=== PATIENT | male | born 1995 | race Caucasian/White ===

== ENCOUNTER 2017-05-11 11:18 | Inpatient (IN) | payer BC, OTHER ==
[~2017-05-11] VITALS: Ht 182.9 cm; Wt 68.0 kg
[2017-05-12 19:45] VITALS: BP 135/88
[2017-05-12] MEDS ORDERED: ONDANSETRON 4 MG/2 ML VIAL IM PRN (19:45)
[2017-05-12] MEDS ORDERED: ONDANSETRON ODT 4 MG TAB.RAPDIS SL PRN (19:45)
[2017-05-12] MEDS ORDERED: MAG HYDROX/AL HYDROX/SIMETH 30 ML LIQUID UDC PO PRN (19:45)
[2017-05-12] MEDS ORDERED: ACETAMINOPHEN 325 MG TABLET PO PRN (19:45)
[2017-05-12] MEDS ORDERED: LOPERAMIDE HCL 2 MG CAPSULE PO PRN ×2 (19:45)
[2017-05-12] MEDS ORDERED: LORAZEPAM 2 MG/1 ML VIAL IM PRN (19:45)
[2017-05-12] MEDS ORDERED: MIRALAX 17 GM POWD.PACK PO PRN (19:45)
[2017-05-12] MEDS ORDERED: LORAZEPAM 1 MG TABLET PO PRN ×2 (19:45)
[2017-05-12] MEDS ORDERED: DICYCLOMINE HCL 20 MG TABLET PO PRN (19:45)
[2017-05-12] MEDS ORDERED: CLONIDINE HCL 0.1 MG TABLET PO PRN (19:45)
[2017-05-12] MEDS ORDERED: IBUPROFEN 600 MG TABLET PO PRN (19:45)
[2017-05-12] MEDS ORDERED: diphenhydrAMINE 50 MG CAPSULE PO PRN (19:45)
[2017-05-12] MEDS ORDERED: MAGNESIUM HYDROXIDE 30 ML LIQUID UDC PO PRN (19:45)
--- NOTE | 2017-05-12 19:45 | NUR ---
PRE-ADMISSION VS BP-135/88 P-85 T-97.5 R-16 SpO2 AT 99% IN RA. PATIENT ALERT AND ORIENTED X 4. AMBULATORY, PATIENT NOTED WITH WALKER MATT , HE STATES HE HAD FRACTURE ON RIGHT ANKLE 2 WEEKS AGO , GAIT IS STEADY. SPEECH IS CLEAR AND ABLE TO ANSWER QUESTIONS APPROPRIATELY. NO ALLERGY TO MEDICATION OR FOOD. NO SEIZURE HISTORY. WILL CONTINUE ADMISSION ON 3RD FLOOR.
--- NOTE | 2017-05-12 19:59 | NUR ---
ADMISSION NOTE PATIENT IS A 22 YEAR OLD MALE WHO PRESENTS TO [facility] FOR SUPERVISED WITHDRAWAL FROM ETOH/COCAINE DEPENDENCE. HEIGHT IS 6'0 AND WEIGHT IS 150 LBS. LUNGS CLEAR , ABDOMEN SOFT AND NON-DISTENDED. BOWEL SOUNDS ACTIVE. LAST BOWEL MOVEMENT TODAY. BODY CHECK DONE, SKIN INTACT. OLD SCAR NOTED ON LEFT ANKLE. PATIENT REPORTS PMH OF LEFT ANKLE SURGERY DUE TO FRACTURE 2 YEARS AGO AND HE HAD FRACTURE ON RIGHT ANKLE 2 WEEKS AGO AND HE WEARS WALKER BOOTS. PATIENT LIVES WITH HIS PARENTS . 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 PATIENT REQUEST TO BE FULL CODE AND ON REGULAR DIET. PATIENT'S DRUG OF CHOICE ARE: ALCOHOL (BEER AND VODKA)-STARTED DRINKING AT AGE 14. PATIENT DRINKS 12-18 BEERS AND 12 OUNCES OF VODKA DAILY FOR 4 MONTHS. LAST DRINK WAS 3-4 SHOTS OF VODKA PRIOR TO ADMISSION COCAINE (SNORT)-STARTED USING AT AGE 19. PATIENT SNORTS 1 GRAM DAILY FOR 4 MONTHS. LAST USE WAS 1 GRAM ON 05/12/16 MIDNIGHT. TREATMENT HISTORY [facility] DOES NOT HAVE PCP. PATIENT STATES HE'S ANXIOUS, NO N/V. DENIES ANY PAIN AT THIS TIME. CIWA 4. DENIES SI/HI. PATIENT SMOKES 2 CIGARETTES OCCASIONALLY. HE REFUSED FLU AND PNEUMONIA VACCINE, EXPLAINED RISKS/BENEFITS BUT STILL REFUSED. NO HOME MEDICATION. NO UA PROVIDED AT THIS TIME. DR. GARCIA SAW PATIENT AT INTAKE. PATIENT WAS PLACED ON 5 DAYS ATIVAN TAPER. PATIENT ON FALL/SEIZURE PRECAUTION. PATIENT ORIENTED TO SURROUNDINGS AND HOW TO USE CALL LIGHT. EXPLAINED Q4 HOURS VS , UNIT AND SMOKING POLICIES. CALL LIGHT IN REACH. WILL CONTINUE TO MONITOR.
--- NOTE | 2017-05-12 20:00 | NUR ---
START OF SHIFT NOTE RECEIVED REPORT FROM DAY SHIFT NURSE. PATIENT CONTINUE ON ATIVAN TAPER FOR ETOH DEPENDENCE. PATIENT REPORTS PMH OF SURGERY ON LEFT ANKLE AND FRACTURE ON RIGHT ANKLE (WEARS WALKER BOOT). NO SEIZURE HISTORY. PPD WAS GIVEN ON LEFT FOREARM. IN THE ROOM MOST OF THE DAY, SLEPT MOST OF THE DAY SHIFT. ATIVAN AT 1700 WAS HELD DUE TO PATIENT SLEEPING. LAST CIWA 0. RECEIVED PATIENT ALERT AND ORIENTED X 4. RESPIRATION EVEN AND UNLABORED. PATIENT ANXIOUS, NOTED WITH FINE TREMORS, NO N/V , DENIES ANY PAIN AT THIS TIME. ON FALL/SEIZURE PRECAUTION. SAFETY MEASURES IN PLACE. CALL LIGHT IN REACH. WILL CONTINUE TO MONITOR. Addendum: 05/14/17 at 0221 by SAMANTHA BHAKTA LVN ERROR CHARTING
[2017-05-12] MEDS ORDERED: THIAMINE HCL 200 MG/2 ML VIAL IM ONE (21:00)
[2017-05-12] MEDS ORDERED: LORAZEPAM 1 MG TABLET PO SCH (22:00)
--- NOTE | 2017-05-12 22:00 | NUR ---
ATIVAN HELD ATIVAN HELD, PATIENT UNABLE TO PROVIDE UA YET
[2017-05-12 23:21] LABS: BASOPHILS # (AUTO) 0.1 K/uL (0.0-8.0); BASOPHILS % (AUTO) 0.6 % (0.0-2.0); EOSINOPHILS # (AUTO) 0.4 K/uL (0.0-0.7); EOSINOPHILS % (AUTO) 4.4 % (0.0-7.0); HEMATOCRIT 44.8 % (36.7-47.1); HEMOGLOBIN 15.6 g/dL (12.5-16.3); LYMPHOCYTES # (AUTO) 2.3 K/uL (20.0-40.0); LYMPHOCYTES % (AUTO) 26.2 % (20.5-51.5); MEAN CORPUSCULAR HGB CONC 35 g/dL (32.5-36.3); MEAN CORPUSCULAR VOLUME 91.7 fL (73.0-96.2); MONOCYTES # (AUTO) 0.8 K/uL (2.0-10.0); MONOCYTES % (AUTO) 8.7 % (0.0-11.0); NEUTROPHILS # (AUTO) 5.4 K/uL (1.8-8.9); NEUTROPHILS % (AUTO) 60.1 % (38.5-71.5); PLATELET COUNT (AUTO) 289 K/uL (152-348); RED BLOOD CELL COUNT(AUTO) 4.89 MIL/uL (4.06-5.63); WHITE BLOOD COUNT (AUTO) 8.9 K/uL (3.6-10.2)
[2017-05-12 23:36] LABS: ALANINE AMINOTRANSFERASE 55 U/L (16-63); ALKALINE PHOSPHATASE 90 U/L (50-136); AMYLASE 69 U/L (25-115); ASPARTATE AMINOTRANSFERASE 33 U/L (15-37); BILIRUBIN,TOTAL 0.4 mg/dL (0.2-1.0); CARBON DIOXIDE 34 mmol/L (21-32); CHLORIDE 102 mmol/L (98-107); CREATININE 1.1 mg/dL (0.6-1.3); GLUCOSE 98 mg/dL (74-106); POTASSIUM 4.3 mmol/L (3.5-5.1); TOTAL PROTEIN, SERUM 7.6 g/dL (6.4-8.2); UREA NITROGEN, BLOOD 14 mg/dL (7-18)
[2017-05-13] VITALS: BP 111/63
--- NOTE | 2017-05-13 | NUR ---
CIWA DEFERRED PATIENT SLEEPING. CIWA DEFERRED. RESPIRATION EVEN AND UNLABORED. SAFETY MEASURES IN PLACE. CALL LIGHT IN REACH. WILL CONTINUE TO MONITOR
[2017-05-13 00:26] LABS: ETHANOL < 3 MG/DL (0-0)
--- NOTE | 2017-05-13 03:59 | NUR ---
PRATEEK [facility]AW[facility]IST[facility] PATIENT C/O ANXIETY AND UNABLE TO GO BACK TO SLEEP. WILL MONITOR FOR EFFECTIVENESS Addendum: 05/14/17 at 0546 by SAMANTHA BHAKTA LVN ERROR: CHARTING (TIME)
[2017-05-13 04:00] VITALS: BP_SYST 103; BP_SYST 107; BP_DIAS 50; BP_DIAS 59
--- NOTE | 2017-05-13 04:00 | NUR ---
CIWA DEFERRED PATIENT SLEEPING. CIWA DEFERRED. RESPIRATION EVEN AND UNLABORED. SAFETY MEASURES IN PLACE. CALL LIGHT IN REACH. WILL CONTINUE TO MONITOR
--- NOTE | 2017-05-13 07:27 | NUR ---
END OF SHIFT NOTE PATIENT SLEPT 10 HOURS. FLUID INTAKE 855 ML. VOIDED X 3. NO BM. PATIENT IS A 22 YEAR OLD MALE NEWLY ADMITTED FOR ETOH DEPENDENCE. PATIENT WAS PLACED ON 5 DAY ATIVAN TAPER. PATIENT REFUSED THIAMINE IM INJECTION, EXPLAINED RISKS/BENEFITS BUT STILL REFUSED. PATIENT HAVE NOT YET PROVIDED UA, ATIVAN ONE TIME AT 2200 HELD. PATIENT DID NOT REQUIRE ANY PRN MEDICATION. LAST CIWA 4. ON FALL/SEIZURE PRECAUTION. SAFETY MEASURES IN PLACE. CALL LIGHT IN REACH. WILL CONTINUE TO MONITOR.
--- NOTE | 2017-05-13 07:30 | NUR ---
Start of shift report: A/o x4 lying in bed with with right foot brace on Deies of any distress. no s/s of w/d sx. On 5 day ativan taper. Skin warm and dry color is good. resp even and unlab. Safety precautions observed. call light within reach.
[2017-05-13 08:30] VITALS: BP 118/87
[2017-05-13] MEDS ORDERED: TUBERCULIN,PURIF.PROT.DERIV. 5 TU/0.1 ML TEST ID ONE (09:00)
[2017-05-13] MEDS: LORAZEPAM 1 MG TABLET PO SCH ×4 (09:28→20:55)
[2017-05-13] MEDS: MULTIVITAMINS,THERAPEUTIC TABLET PO SCH (09:28)
[2017-05-13] MEDS: THIAMINE HCL 100 MG TABLET PO SCH (09:28)
[2017-05-13] MEDS: FOLIC ACID 1 MG TABLET PO SCH (09:28)
[2017-05-13 12:17] VITALS: BP 105/72
[2017-05-13 13:48] LABS: *AMPHETAMINE, URINE NEGATIVE (NEGATIVE); *BARBITURATE, URINE NEGATIVE (NEGATIVE); *CANNABINOID, URINE POSITIVE (NEGATIVE); *COCCAINE, URINE POSITIVE (NEGATIVE); *OPIATE, URINE NEGATIVE (NEGATIVE); *PHENCYCLIDINE SCREEN,URINE NEGATIVE (NEGATIVE)
[2017-05-13 17:03] VITALS: BP 91/55
[2017-05-13 20:00] VITALS: BP 121/82
--- NOTE | 2017-05-13 20:00 | NUR ---
START OF SHIFT NOTE RECEIVED REPORT FROM DAY SHIFT NURSE. PATIENT CONTINUE ON ATIVAN TAPER FOR ETOH DEPENDENCE. PATIENT REPORTS PMH OF SURGERY ON LEFT ANKLE AND FRACTURE ON RIGHT ANKLE (WEARS WALKER BOOT). NO SEIZURE HISTORY. PPD WAS GIVEN ON LEFT FOREARM. IN THE ROOM MOST OF THE DAY, SLEPT MOST OF THE DAY SHIFT. ATIVAN AT 1700 WAS HELD DUE TO PATIENT SLEEPING. LAST CIWA 0. RECEIVED PATIENT ALERT AND ORIENTED X 4. RESPIRATION EVEN AND UNLABORED. PATIENT ANXIOUS, NOTED WITH FINE TREMORS, NO N/V , DENIES ANY PAIN AT THIS TIME. ON FALL/SEIZURE PRECAUTION. SAFETY MEASURES IN PLACE. CALL LIGHT IN REACH. WILL CONTINUE TO MONITOR.
[2017-05-14] VITALS: BP 109/70
--- NOTE | 2017-05-14 | NUR ---
CIWA DEFERRED PATIENT SLEEPING. CIWA DEFERRED. RESPIRATION EVEN AND UNLABORED. SAFETY MEASURES IN PLACE. CALL LIGHT IN REACH. WILL CONTINUE TO MONITOR.
--- NOTE | 2017-05-14 03:59 | NUR ---
[facility]XIETY AND UNABLE TO GO BACK TO SLEEP. WILL MONITOR FOR EFFECTIVENESS Addendum: 05/14/17 at 0548 by SAMANTHA BHAKTA LVN ERROR : CHARTING IS FOR ANOTHER PATIENT
[2017-05-14 04:00] VITALS: BP 117/69
--- NOTE | 2017-05-14 04:00 | NUR ---
CIWA DEFERRED PATIENT SLEEPING. CIWA DEFERRED. RESPIRATION EVEN AND UNLABORED. SAFETY MEASURES IN PLACE. CALL LIGHT IN REACH. WILL CONTINUE TO MONITOR.
--- NOTE | 2017-05-14 04:59 | NUR ---
PRATEEK GARRETT RE-ASSESSMENT PATIENT STATES LESS ANXIOUS BUT STILL UNABLE TO SLEEP , WILL TRY TO SLEEP Addendum: 05/14/17 at 0654 by SAMANTHA BHAKTA LVN ERROR : CHARTING IS FOR ANOTHER PATIENT
--- NOTE | 2017-05-14 07:14 | NUR ---
END OF SHIFT NOTE PATIENT SLEPT 9 HOURS. FLUID INTAKE 1,096 ML. VOIDED X 3. BM X 1. PATIENT CONTINUE ON ATIVAN TAPER FOR ETOH DEPENDENCE, TOLERATED WELL AND NO ADVERSE REACTION. PATIENT COMPLIANT WITH MEDICATION AND TREATMENT PLAN. PATIENT ANXIOUS, NOTED WITH FINE TREMORS, NO N/V , DENIES ANY PAIN BEGINNING OF SHIFT. MEDICATION AND TAPER GIVEN ORDERED. PATIENT DID NOT REQUIRE ANY PRN MEDICATION. ON FALL/SEIZURE PRECAUTION. SAFETY MEASURES IN PLACE. CALL LIGHT IN REACH. WILL CONTINUE TO MONITOR. LAST CIWA 5.
--- NOTE | 2017-05-14 07:45 | NUR ---
Start of Shift Report: Received report from awake overnight monitor. Ciwa 5 Compliant with am meds. Lying in bed watching tv. fall/sz precautions observed. continue to mointor for safety. Call light within reach.
[2017-05-14 08:06] LABS: HEPATITIS B SURFACE AG Negative (Negative)
[2017-05-14] MEDS: THIAMINE HCL 100 MG TABLET PO SCH (08:54)
[2017-05-14] MEDS: FOLIC ACID 1 MG TABLET PO SCH (08:54)
[2017-05-14] MEDS: LORAZEPAM 1 MG TABLET PO SCH ×3 (08:54→20:35)
[2017-05-14] MEDS: MULTIVITAMINS,THERAPEUTIC TABLET PO SCH (08:54)
[2017-05-14 09:25] VITALS: BP 113/72
[2017-05-14 12:31] VITALS: BP 117/76
[2017-05-14 16:51] VITALS: BP 114/71
--- NOTE | 2017-05-14 17:47 | NUR ---
End of Shift report: A/o x4 lying in bed watching Tv Ciwa 1 c/o slight anxiety no prn through given during shift. Client states " I will start attending groups tomorrow. Continue to mointor for safety. remains stable.
--- NOTE | 2017-05-14 19:01 | NUR ---
Therapist prompted client about group times. Client stated he would attend all groups tomorrow.
--- NOTE | 2017-05-14 19:15 | NUR ---
START OF SHIFT Received 22 year old male patient admitted on 05/12/17 for ETOH and Cocaine dependency. Pt is full code with NKA. He reports a PMhx of surgery on left ankle -2 years ago, and fracture on right ankle (wears walker boot). He reports drinking beer or vodka. 12-18 beers and 12 oz of vodka daily for 4 months. Last dose was 3-4 shots of vodka on 05/12/17. He also reports snorting cocaine 1 gram daily for 4 months. Last dose was 1 gram on 05/12/17. He is on a 5 day Ativan taper and tolerating well. Per endorsement, pt did not receive or request PRN medications. Pt is alert and oriented x4, breathing is even and unlabored. Safety measures in place. Will continue to monitor.
[2017-05-14 20:00] VITALS: BP 121/67
[2017-05-14] MEDS: GABAPENTIN 300 MG CAPSULE PO SCH (20:35)
[2017-05-15] VITALS: BP 110/72
--- NOTE | 2017-05-15 04:00 | NUR ---
VITALS REFUSED, CIWA DEFERRED 0400 vitals refused. CIWA deferred d/t pt lying in bed with eyes closed noted to be asleep. Breathing even and unlabored. Safety measures in place. Will continue to monitor.
--- NOTE | 2017-05-15 07:09 | NUR ---
END OF SHIFT Pt is a 22 year old male patient admitted on 05/12/17 for ETOH and Cocaine dependency. Pt is full code with NKA. He reports a PMhx of surgery on left ankle -2 years ago, and fracture on right ankle (wears walker boot). He continues on a 5 day Ativan taper and tolerating well. He did not receive or request PRN medications. He slept a total of 10 hrs, Intake: 900mL, Void: x2, BM:, CIWA:2. Pt remains alert and oriented x4, breathing is even and unlabored. Safety measures in place. Endorsed to AM shift.
--- NOTE | 2017-05-15 07:21 | NUR ---
BEGINNING OF SHIFT Patient endorsement report received from overage shortage and damage clerk nurse, all pertinent information discussed. Patient is a 22 year old male admitted on 05/12/2017. With admitting Dx: etoh dependence. Patient continues on a 5 day Ativan taper as ordered, and is currently scheduled to begin day 3 of taper. Patient received no PRN medications during overage shortage and damage clerk. Patient slept for 10 hours with last ciwa score of: 2. Patient skin is intact. Fall and seizure precautions observed at all times. Patient received in bed with eyes closed and respirations even and unlabored. Will educate patient regarding plan of care for the day and medication regimen. will monitor closely.
[2017-05-15 08:20] VITALS: BP 110/80
[2017-05-15] MEDS: FOLIC ACID 1 MG TABLET PO SCH (08:42)
[2017-05-15] MEDS: GABAPENTIN 300 MG CAPSULE PO SCH ×2 (08:42→22:18)
[2017-05-15] MEDS: MULTIVITAMINS,THERAPEUTIC TABLET PO SCH (08:43)
[2017-05-15] MEDS: LORAZEPAM 1 MG TABLET PO SCH ×3 (08:43→22:18)
[2017-05-15] MEDS: THIAMINE HCL 100 MG TABLET PO SCH (08:43)
[2017-05-15 12:40] VITALS: BP 127/79
[2017-05-15 14:10] VITALS: BP 127/79
[2017-05-15 17:02] VITALS: BP 116/69
--- NOTE | 2017-05-15 19:03 | NUR ---
END OF SHIFT Patient alert and oriented x4, vital signs WNL during shift. Patient compliant with therapeutic plan of care. Admitting Dx: etoh dependence and continues on 5 day Ativan taper as ordered. Patient received no PRN medications, all due medications were administered as ordered, well tolerated. Patient presented with: fine tremors, anxiety, barely sweating and, mild agitation with ciwa score of: 6. 0900 CIWA:6; 1300 CIWA: 6; 1700 CIWA: 6. Encouraged patient to increase PO fluid intake as tolerated, to facilitate detox. Encouraged patient to attend group therapies/sessions to learn new coping skills to prevent relapse. patient noted attending and participating, denies SI/HI. Safety measures in place. call light kept with in reach. all needs met and rendered, call light kept with in reach. Safety measures in place. Patient endorsed to overnight stocker nurse, all pertinent information discussed.
--- NOTE | 2017-05-15 19:15 | NUR ---
START OF SHIFT Pt is a 22 year old male patient admitted on 05/12/17 for ETOH and Cocaine dependency. Pt is full code with NKA. He reports a PMhx of surgery on left ankle -2 years ago, and fracture on right ankle (wears walker boot). He reports drinking beer or vodka. 12-18 beers and 12 oz of vodka daily for 4 months. Last dose was 3-4 shots of vodka on 05/12/17. He also reports snorting cocaine 1 gram daily for 4 months. Last dose was 1 gram on 05/12/17. He is receiving a 5 day Ativan taper and tolerating well. Per endorsement, he did not receive or request PRN medications. Pt is alert and oriented x4, breathing is even and unlabored. Safety measures in place. Will continue to monitor.
[2017-05-15 20:00] VITALS: BP 126/80
--- NOTE | 2017-05-16 | NUR ---
VITALS REFUSED, CIWA DEFERRED 0000 vitals refused. CIWA deferred d/t pt lying in bed with eyes closed noted to be asleep. Breathing even and unlabored. Safety measures in place. Will continue to monitor.
--- NOTE | 2017-05-16 07:18 | NUR ---
END OF SHIFT Pt is a 22 year old male patient admitted on 05/12/17 for ETOH and Cocaine dependency. Pt is full code with NKA. He continues on a 5 day Ativan taper and tolerating well. He did not receive or request PRN medications. He slept a total of 7 hrs, Intake: 1700mL, Void: x1, BM:x1, CIWA:4. Pt remains alert and oriented x4, breathing is even and unlabored. Safety measures in place. Endorsed to AM shift.
--- NOTE | 2017-05-16 07:43 | NUR ---
BEGINNING OF SHIFT Patient endorsement report received from scene shifter nurse, all pertinent information discussed. Patient is a 22 year old male admitted on 05/12/2017. With admitting Dx: etoh dependence. Patient continues on a 5 day Ativan taper as ordered, and is currently scheduled to begin day 4 of taper. Patient received no PRN medications during scene shifter. Patient slept for 6 hours with last ciwa score of: 4. Patient skin is intact. Fall and seizure precautions observed at all times. Patient received in bed with eyes closed and respirations even and unlabored. Will educate patient regarding plan of care for the day and medication regimen. will monitor closely.
[2017-05-16 08:30] VITALS: BP 114/76
[2017-05-16] MEDS: GABAPENTIN 300 MG CAPSULE PO SCH ×2 (08:44→20:16)
[2017-05-16] MEDS: MULTIVITAMINS,THERAPEUTIC TABLET PO SCH (08:44)
[2017-05-16] MEDS: THIAMINE HCL 100 MG TABLET PO SCH (08:44)
[2017-05-16] MEDS: FOLIC ACID 1 MG TABLET PO SCH (08:44)
[2017-05-16] MEDS: LORAZEPAM 1 MG TABLET PO SCH ×2 (08:44→20:16)
[2017-05-16 13:34] VITALS: BP 112/78
[2017-05-16 17:49] VITALS: BP 124/80
--- NOTE | 2017-05-16 19:07 | NUR ---
END OF SHIFT Patient alert and oriented x4, vital signs WNL during shift. Patient compliant with therapeutic plan of care. Admitting Dx: etoh dependence and continues on 5 day Ativan taper as ordered. Patient received no PRN medications, all due medications were administered as ordered, well tolerated. Patient presented with: fine tremors, anxiety, barely sweating and, mild agitation with ciwa score of: 5. 0900 CIWA:5; 1300 CIWA: 5; 1700 CIWA: 5. Encouraged patient to increase PO fluid intake as tolerated, to facilitate detox. Encouraged patient to attend group therapies/sessions to learn new coping skills to prevent relapse. patient noted attending and participating, denies SI/HI. Safety measures in place. call light kept with in reach. all needs met and rendered, call light kept with in reach. Safety measures in place. Patient endorsed to night shift manager nurse, all pertinent information discussed.
--- NOTE | 2017-05-16 19:30 | NUR ---
START OF SHIFT Pt is a 22 y/o male admitted on 05/12/17 for ETOH and cocaine dependence. Pt is full code, NKA, regular diet and on fall/seizure precautions. Denies hx of seizures. Pt reports PMH of left ankle surgery 2 years ago and right ankle fracture. Pt is on a 5 day Ativan taper that started on 05/13/17, tolerating well. Last CIWA 3 and no PRNs administered during day shift. Upon assessment pt laying in bed watching TV and presents with anxiety, fatigue, intermittent sweats, flushed skin, mild restlessness, dysphoria and anhedonia. Denies N/V/D. Denies chest pain or SOB. Respirations even and unlabored. Medications due. Safety measures in place.
[2017-05-16 20:00] VITALS: BP 116/75
--- NOTE | 2017-05-17 | NUR ---
CIWA DEFERRED AND VITALS REFUSED Pt laying in bed with eyes closed, CIWA deferred, to be assessed when pt is awake per orders. Vitals refused. Respirations 16, even and unlabored. Safety measures in place. Call light within reach. Will continue to monitor.
--- NOTE | 2017-05-17 07:11 | NUR ---
END OF SHIFT Pt is a 22 y/o male admitted on 05/12/17 for ETOH and cocaine dependence. Pt is full code, NKA, regular diet and on fall/seizure precautions. Denies hx of seizures. Pt reports PMH of left ankle surgery 2 years ago and right ankle fracture. Pt is on a 5 day Ativan taper that started on 05/13/17, tolerating well. Pt presented with anxiety, fatigue, intermittent sweats, flushed skin, mild restlessness, dysphoria and anhedonia. Scheduled medications administered, effective in S/S of withdrawal as verbalized by pt. No PRNS administered. VS WNL. Last CIWA 3 at 1999. Pt slept 8 hours. Intake 1151 ml, void x 2, stool x 0. Safety measures in place. Call light within reach. Pts needs have been met. Endorsed to day shift nurse.
--- NOTE | 2017-05-17 07:34 | NUR ---
BEGINNING OF SHIFT Patient endorsement report received from overnight caregiver nurse, all pertinent information discussed. Patient is a 22 year old male admitted on 05/12/2017. With admitting Dx: etoh dependence. Patient continues on a 5 day Ativan taper as ordered, and is currently scheduled to begin day 4 of taper. Patient received no PRN medications during overnight caregiver. Patient slept for 8 hours with last ciwa score of: 3. Patient skin is intact. Fall and seizure precautions observed at all times. Patient received in bed with eyes closed and respirations even and unlabored. Will educate patient regarding plan of care for the day and medication regimen. will monitor closely.
[2017-05-17 08:29] VITALS: BP 112/79
[2017-05-17] MEDS ORDERED: LORAZEPAM 1 MG TABLET PO SCH (09:00)
[2017-05-17] MEDS: FOLIC ACID 1 MG TABLET PO SCH (09:08)
[2017-05-17] MEDS: GABAPENTIN 300 MG CAPSULE PO SCH ×2 (09:08→20:32)
[2017-05-17] MEDS: THIAMINE HCL 100 MG TABLET PO SCH (09:08)
[2017-05-17] MEDS: MULTIVITAMINS,THERAPEUTIC TABLET PO SCH (09:08)
[2017-05-17 12:45] VITALS: BP 113/82
[2017-05-17] MEDS ORDERED: GABA-534 PO (14:23)
[2017-05-17 16:50] VITALS: BP 113/69
--- NOTE | 2017-05-17 19:09 | NUR ---
END OF SHIFT Patient alert and oriented x4, vital signs WNL during shift. Patient compliant with therapeutic plan of care. Admitting Dx: etoh dependence and completed 5 day Ativan taper as ordered, patient is scheduled to be discharged tomorrow. Patient received no PRN medications, all due medications were administered as ordered, well tolerated. Patient presented with: mild anxiety. 0900 CIWA:1; 1300 CIWA:1; 1700 CIWA:1. Encouraged patient to increase PO fluid intake as tolerated, to facilitate detox. Encouraged patient to attend group therapies/sessions to learn new coping skills to prevent relapse. patient noted attending and participating, denies SI/HI. Safety measures in place. call light kept with in reach. all needs met and rendered, call light kept with in reach. Safety measures in place. Patient endorsed to weight shifter nurse, all pertinent information discussed.
--- NOTE | 2017-05-17 19:30 | NUR ---
START OF SHIFT Pt is a 22 y/o male admitted for ETOH dependency.Pt is A/A/O X 4.Pt is compliant with therapeutic plan of care.Pt has completed 5 day Ativan taper as ordered, patient is scheduled to be discharged tomorrow.Last CIWA=1. Encouraged pt to increase PO fluid intake as tolerated.Pt is on full code,regular diet and NKA.Skin is intact,warm and dry to touch. Safety measures in place. call light kept with in reach. all needs met and rendered.Will continue to monitor.
[2017-05-17 20:00] VITALS: BP 115/73
--- NOTE | 2017-05-18 | NUR ---
VITALS REFUSED; CIWA DEFERRED. Pt resting in bed with eyes closed,in deep sleep. CIWA deferred, d/t sleep. Vitals refused. Respirations are even and unlabored. Safety measures in place. Call light within reach. Will continue to monitor.
--- NOTE | 2017-05-18 06:46 | NUR ---
END OF SHIFT Pt is a 22 y/o male admitted for ETOH dependency.Pt is A/A/O X 4.Pt is compliant with therapeutic plan of care.Pt has completed 5 day Ativan taper as ordered, patient is scheduled to be discharged today.Last CIWA=1.Pt is on full code,regular diet and NKA.Skin is intact,warm and dry to touch. No PRN meds given this shift, pt slept 7 hrs, fluid intake was 750 mls, voided x 1. Safety measures in place. call light kept with in reach. all needs met and rendered.Will continue to monitor.
--- NOTE | 2017-05-18 07:25 | NUR ---
Start of the Shift Report from the night nurse: pt is a 22 y/o male here for Etoh r.t Vodka 12oz and beer 12-18 daily for 4 months and Cocaine 1 gram snorted daily for 4 months; 5 day Ativan taper ordered. Pt is a full coded, NKA, regular diet, fall and seizure precautions ordered. HHx: Right ankle fx and Left Ankle surgery 2 years ago with splints used, multiple relapses noted. Skin is intact with no open wounds noted. No PRN's given last night. New order for the pt to get d/c'd today. Pt is asleep in room. Will cont. to monitor the pt.
[2017-05-18 07:56] VITALS: BP 107/78
[2017-05-18 08:00] VITALS: BP 107/78
[2017-05-18] MEDS: MULTIVITAMINS,THERAPEUTIC TABLET PO SCH (08:14)
[2017-05-18] MEDS: GABAPENTIN 300 MG CAPSULE PO SCH (08:14)
[2017-05-18] MEDS: THIAMINE HCL 100 MG TABLET PO SCH (08:14)
[2017-05-18] MEDS: FOLIC ACID 1 MG TABLET PO SCH (08:14)
--- NOTE | 2017-05-18 09:25 | NUR ---
Discharge Pt A&O x 4, ambulatory independently. Features symmetrical, PERRLA 3mm, no MEJIA, no dizziness or N/V. Pt denies chest pain, pulses present on BUE's and BLE's, V/S stable. No SOB or respiratory distress noted. Last BM today. Pt denies dysuria and voided. Skin is intact. No w/d s/sx noted. Pt is given belongings and d/c summary packet with written Rx. No home medications brought. Pt is chaperoned to the lobby and transported to [facility] via [facility].
== END 2017-05-18 09:28 | disposition other institution (70) | DRG 895 ==
LOC: SRC 05-12 19:14
PROVIDERS: ADMIT Internal Medicine; ATTEND Internal Medicine
PROC: HZ2ZZZZ Detoxification Services for Substance Abuse Treatment (ICD-10-PCS; principal; 2017-05-12)
PROC: HZ31ZZZ Individual Counseling for Substance Abuse Treatment, Behavioral (ICD-10-PCS; 2017-05-14)
PROC: HZ41ZZZ Group Counseling for Substance Abuse Treatment, Behavioral (ICD-10-PCS; 2017-05-15)
DX: F10.230 Alcohol dependence with withdrawal, uncomplicated (principal); E87.3 Alkalosis; F14.20 Cocaine dependence, uncomplicated; Y90.0 Blood alcohol level of less than 20 mg/100 ml; E86.0 Dehydration; Z81.1 Family history of alcohol abuse and dependence; Z59.0 Homelessness; Z59.1 Inadequate housing; S82.891D Other fracture of right lower leg, subsequent encounter for closed fracture with routine healing; X58.XXXD Exposure to other specified factors, subsequent encounter; F17.210 Nicotine dependence, cigarettes, uncomplicated; F12.90 Cannabis use, unspecified, uncomplicated; F13.90 Sedative, hypnotic, or anxiolytic use, unspecified, uncomplicated
CPT/HCPCS: 36415; 70030-TC; 80307; 80346; 80349; 80353; 83735; 85025; 86580; 86592; 86705; 86803; 87340; 87806; A4663; G0480